=== PATIENT | male | born 1980 ===

== ENCOUNTER 2018-04-26 07:12 | Day surgery (SDC) | payer BC ==
[~2018-04-26 07:12] MED LIST: Lactated Ringers 1,000 ML IV SCH; Sodium Chloride 0.9% 10 ML Syringe FLUSH PRN; Sodium Chloride 0.9% 2.5 ML Syringe FLUSH PRN
[2018-04-26] MEDS ORDERED: Bupivacaine 0.25% 10 ML SDV ONE (07:16)
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
[2018-04-26] MEDS ORDERED: Propofol 200 MG/20 ML SDV ONE (07:35)
[2018-04-26] MEDS ORDERED: Midazolam 1 MG/ML 2 ML SDV ONE (07:35)
[2018-04-26] MEDS ORDERED: fentaNYL 250 MCG/5 ML SDV ONE (07:36)
[2018-04-26] MEDS ORDERED: Lidocaine 2% 100 MG/5 ML Syringe ONE (07:37)
[2018-04-26] MEDS ORDERED: Succinylcholine 200 MG/10 ML MDV ONE (07:37)
[2018-04-26] MEDS ORDERED: Ciprofloxacin in D5W 400 MG in Premix Bag 1 BAG IV SCH ×2 (08:00)
[2018-04-26] MEDS ORDERED: HYDROmorphone 2 MG/ML SDV ONE (08:45)
[2018-04-26] MEDS ORDERED: fentaNYL 100 MCG/2 ML SDV ONE (09:16)
--- NOTE | 2018-04-26 09:49 | OR ---
SURGEON: Cl Blackman M.D. DATE OF PROCEDURE: 04/26/2018 PREOPERATIVE DIAGNOSIS: Left hydrocele. POSTOPERATIVE DIAGNOSIS: Left hydrocele. OPERATION PERFORMED: Hydrocelectomy. DESCRIPTION OF PROCEDURE: The patient was given general anesthesia in the supine position. External genital area was prepped and draped in sterile drapes. A transverse incision was made in left scrotal sac. The fluid was taken out. The testicle was delivered into the wound. A large portion of the hydrocele sac was excised. The edges were reapproximated around the spermatic cord. The rest were controlled with a running suture of 3-0 chromic. All bleeding points were fulgurated. A 0.25 inch Flo drain was left in and the wound was then closed in 2 layers, with 0 chromic running suture for the muscle layer and 0 chromic interrupted suture for the skin. The drain was secured in place with the same. Estimated blood loss 30 mL. Light pressure dressing was applied, and the patient was moved to recovery room in good condition. AMADOR / CARLY /[id number]
--- NOTE | 2018-04-26 10:19 | PCM.POSTAN ---
POST ANESTHESIA ASSESSMENT - MENTAL STATUS Mental Status: Alert, Oriented - RESPIRATORY Respiratory Status: Respiratory Rate WNL, Airway Patent, O2 Saturation Stable - CARDIOVASCULAR CV Status: Pulse Rate WNL, Blood Pressure Stable - GASTROINTESTINAL GI Status: No Symptoms - PAIN Pain Score: 3 - POST OP HYDRATION Hydration Status: Adequate & Stable - OBSERVATIONS Free Text/Narrative:: no anesthesia problems
--- NOTE | 2018-04-26 11:44 | PCM48HPAN ---
Post Anesthesia Note - EVALUATION WITHIN 48HRS OF ANESTHETIC Vital Signs in Normal Range: Yes Patient Participated in Evaluation: Yes Respiratory Function Stable: Yes Airway Patent: Yes Cardiovascular Function Stable: Yes (BP in normal range) Hydration Status Stable: Yes Pain Control Satisfactory: Yes Nausea and Vomiting Control Satisfactory: Yes Mental Status Recovered: Yes Resp Rate: 14 - COMMENTS/OBSERVATIONS Free Text/Narrative:: Pateint asked to see his doctor about his hypertension...may have been white coat syndrome.
== END 2018-04-26 13:12 | disposition home or self-care (01) ==
LOC: MW.SDS 07:12
PROVIDERS: ATTEND Urology
DX: N43.3 Hydrocele, unspecified (principal); I10 Essential (primary) hypertension; E11.9 Type 2 diabetes mellitus without complications; E66.9 Obesity, unspecified; Z68.41 Body mass index [BMI] 40.0-44.9, adult; Z79.899 Other long term (current) drug therapy; Z88.0 Allergy status to penicillin
CPT/HCPCS: 55040; J0330; J0744; J1170; J2250; J3010; J7120; 00920; 88302; J2704